=== PATIENT | female | born 1935 | race Caucasian/White ===

== ENCOUNTER 2020-05-13 16:30 | Observation (INO) | payer SELFPAY ==
[2020-05-13] VITALS (14 sets, daily range): BP systolic 154–208; BP diastolic 83–121; PULSE 72–99; RESP 10–19; TEMP 36.2–37.6; O2SAT 97–100; BMI 21.1
--- NOTE | 2020-05-13 | DI.RAD.S_ITS ---
PROCEDURE: XR SHOULDER LT MIN 2V INDICATIONS: CLOSED RELOCATION FLUORO GUIDED. TECHNIQUE: To views of the shoulder were acquired. COMPARISON: [facility], CR, XR SHOULDER LT MIN 2V, 05/13/2020, 16:50. FINDINGS: Bones: Left humeral neck fracture redemonstrated. Fracture remains impacted with slight lateral displacement of the humeral head. Soft tissues: No suspicious soft tissue calcifications. IMPRESSION: Left humeral neck fracture impacted with slight humeral head lateral displacement. Dictated by: Rakel Gray MD, PhD on 05/13/2020 at 20:38 Approved by: Rakel Gray MD, PhD on 05/13/2020 at 20:39
--- NOTE | 2020-05-13 16:46 | DI.RAD.S_ITS ---
PROCEDURE: XR SHOULDER LT MIN 2V INDICATIONS: fall TECHNIQUE: 2 views of the shoulder were acquired. COMPARISON: None. FINDINGS: Bones: There is a moderately displaced, impacted fracture seen involving the left humeral head and neck. The left humeral head also appears subluxed anteriorly and inferiorly. Soft tissues: No suspicious soft tissue calcifications. The visualized lung demonstrates an unremarkable appearance. IMPRESSION: Moderately displaced, impacted fractures of the left humeral head and neck. The left humeral head appears subluxed anteriorly and inferiorly and may be dislocated. Please consider CT or short-term follow-up for further evaluation. Dictated by: Quinton Lowe M.D. on 05/13/2020 at 16:16 Approved by: Quinton Lowe M.D. on 05/13/2020 at 16:17
--- NOTE | 2020-05-13 18:09 | ED_ITS ---
HPI - Fall General Chief Complaint: Trauma Stated Complaint: fall down stairs, about 5 steps, left shoulder inj Time Seen by Provider: 05/13/20 18:03 Source: patient Mode of arrival: Wheelchair Limitations: no limitations History of Present Illness HPI Narrative: Patient is an 84-year-old female who is quite strong independent who fell at a restaurant in [facility] hand landed on her left shoulder. She has no head injury or loss of consciousness. She drove herself to this emergency department for evaluation. She denies numbness tingling or weakness. No other injury complaint: fall Onset (ago): hour(s) Fall from: standing Fall witnessed: no Place fall occurred: other (Shoulder) Loss of consciousness: none Related Data Home Medications Medication Instructions Recorded Confirmed Verito Aspirin 05/13/20 No Known Home Medications 05/13/20 05/13/20 Allergies Allergy/AdvReac Type Severity Reaction Status Date / Time No Known Drug Allergies Allergy Verified 05/13/20 16:41 Review of Systems Review of Systems ROS Unobtainable: All systems reviewed & are unremarkable except as noted in HPI and below Constitutional Constitutional: Denies chills, Denies fever(s), Denies lethargy and Denies weakness Cardiovascular Cardiovascular: Denies chest pain, Denies syncope, Denies irregular heart rhythm, Denies lightheadedness, Denies palpitations, Denies dyspnea, Denies dyspnea on exertion and Denies orthopnea Respiratory Respiratory: Denies cough, Denies dyspnea, Denies dyspnea on exertion and Denies wheezing Musculoskeletal Musculoskeletal: Reports system reviewed and no additional complaints, except as documented Integumentary/Breasts Skin/Breast: Denies pruritus, Denies erythema, Denies rash and Denies wounds Neurologic Neurologic: Denies syncope and Denies weakness Endocrine Endocrine: Denies palpitations Allergic/Immunologic Allergic/Immunologic: Denies wheezing Patient History Medical History Patient denies medical problems Social History Smoking Status: Unknown if ever smoked Smoking Status: Unknown if ever smoked alcohol intake frequency: holidays/special occasions only Substance Use Type: does not use Exam Initial Vital Signs Initial Vital Signs: Vital Signs Temperature 97.7 F 05/13/20 16:41 Pulse Rate 87 05/13/20 16:41 Respiratory Rate 16 05/13/20 16:41 Blood Pressure 181/85 H 05/13/20 16:41 Pulse Oximetry 98 05/13/20 16:41 GENERAL: Alert pleasant well-appearing 84-year-old female HEENT: Head atraumatic,EOMI, pupils reactive, face symmetric, moist mucous membranes CARDIOVASCULAR: Regular rate and rhythm without murmurs, rubs or gallops. RESPIRATORY: Breath sounds equal bilaterally, no wheezes rales or rhonchi. ABDOMEN: Soft, nontender. Normoactive bowel sounds all 4 quadrants. No guarding or rebound. EXTREMITIES: Normal range of motion, no clubbing or edema. Neurovascularly inta ct Left upper extremity deformity to left shoulder condition of resulted in patches distal radial pulse intact able to move fingers NEUROLOGICAL: Alert and oriented x4.Normal gait and speech. SKIN: Warm, dry, no laceration, no petechiae, no rashes or lesions. Course Orders Ordered: Acetaminophen (Acetaminophen 325 Mg Tablet) 975 mg PO TID [facility] Last Admin: 05/13/20 21:53 Dose: 975 mg Documented by: PENNIE Hydrocodone Bitart/Acetaminophen (Hydrocodone/Acet 5/325 Tablet) 1 tab PO Q4HR PRN PRN Reason: Pain, Mild (1-3) Last Admin: 05/13/20 23:40 Dose: 1 tab Documented by: LIOR Aspirin (Aspirin Ec 81 Mg Tablet) 81 mg PO BID [facility] Last Admin: 05/13/20 21:53 Dose: 81 mg Documented by: PENNIE Hydralazine HCl (Hydralazine 20 Mg/Ml Vial) 10 mg IV Q4H PRN PRN Reason: Hypertension Lactated Ringer's (Lactated Ringers) 1,000 mls @ 125 mls/hr IV CONT [facility] Last Admin: 05/13/20 21:53 Dose: 125 mls/hr Documented by: PENNIE Labetalol HCl (Labetalol 20 Mg/4 Ml Syringe) 20 mg IV Q2HR PRN PRN Reason: Blood Pressure - High Naloxone HCl (Naloxone 0.4 Mg/Ml Vial) 0.2 mg IV Q2MIN PRN PRN Reason: Opiate Reversal Ondansetron HCl (Ondansetron 4 Mg Odt) 4 mg PO Q4HR PRN PRN Reason: Nausea And Vomiting Ondansetron HCl (Ondansetron 4 Mg/2 Ml Inj) 4 mg IV Q4HR PRN PRN Reason: Nausea And Vomiting Polyethylene Glycol (Polyethylene Glycol 3350 17 Gm Powd.Pack) 17 gm PO DAILY [facility] Discontinued Medications Hydrocodone Bitart/Acetaminophen (Hydrocodone/Acet 5/325 Prepack) 1 bottle MISC SEEINSTR ONE Stop: 05/13/20 18:04 Last Admin: 05/13/20 18:13 Dose: 1 bottle Documented by: KBROTEM Hydrocodone Bitart/Acetaminophen (Hydrocodone/Acet 5/325 Tablet) 1 tab PO PACUNOW PRN PRN Reason: Mild or moderate pain Fentanyl (Fentanyl 100 Mcg/2 Ml Inj) 0 mcg IV Q5M PRN PRN Reason: Pain, Moderate (4-6) Hydromorphone HCl (Hydromorphone 2 Mg Inj) 0 mg IV Q5M PRN PRN Reason: Pain, Severe (7-10) Lactated Ringer's (Lactated Ringers) 1,000 mls @ 42 mls/hr IV CONT [facility] Last Infusion: 05/13/20 20:50 Dose: 0 mls/hr Documented by: Admin: 05/13/20 19:40 Dose: 42 mls/hr Documented by: YANETH Ondansetron HCl (Ondansetron 4 Mg/2 Ml Inj) 4 mg IV NOW PRN PRN Reason: Nausea And Vomiting Vital Signs Vital signs: Vital Signs - 8 hr 05/13/20 16:41 Temperature 97.7 F Pulse Rate 87 Respiratory Rate 16 Blood Pressure 181/85 H Pulse Oximetry 98 MDM - Fall Imaging Data Extremity x-ray #1: Radiologist's Impression: PROCEDURE: XR SHOULDER LT MIN 2V INDICATIONS: fall TECHNIQUE: 2 views of the shoulder were acquired. COMPARISON: None. FINDINGS: Bones: There is a moderately displaced, impacted fracture seen involving the left humeral head and neck. The left humeral head also appears subluxed anteriorly and inferiorly. Soft tissues: No suspicious soft tissue calcifications. The visualized lung demonstrates an unremarkable appearance. IMPRESSION: Moderately displaced, impacted fractures of the left humeral head and neck. The left humeral head appears subluxed anteriorly and inferiorly and may be dislocated. Please consider CT or short-term follow-up for further evaluation. Dictated by: Quinton Lowe M.D. on 05/13/2020 at 16:16 MDM Narrative Medical decision making narrative: Due to fracture dislocation of the humerus. Dr. Leigh orthopedics was called. She agrees to take patient to the OR Discharge Plan Departure Patient Disposition: Admitted as Observation Clinical Impression: Fracture, humerus Qualifiers: Encounter type: initial encounter Humerus Location: proximal Fracture type: closed Fracture alignment: displaced Laterality: left Admit Date/Time: 05/13/20 18:57 Admit Provider: Deyanira Leigh
[2020-05-13] MEDS: HYDROCODONE/ACET 5/325 PREPACK 1 BOTTLE MISC (18:13)
--- NOTE | 2020-05-13 19:20 | PM.HP.1 ---
History of Present Illness History of Present Illness Date Patient Seen: 05/13/20 Time Patient Seen: 19:21 Chief complaint: fall down stairs, about 5 steps, left shoulder inj Narrative: This is a 84-year-old female who was up in [place] at the [employer] at her [employer] a restaurant when she went outside to [facility] in outdoor seating and accidentally fell and landed on her left arm. She noted the acute onset of severe left arm pain. She is having difficulty using her left arm and she actually did drive herself to [facility]. She lives at [facility]. She notes that the left arm was normal prior to the fall as best she could tell. Patient History Medical History Patient denies medical problems Family & Social History Safety & Behavioral: Feels Safe in Current Yes Environment Been Physically Hurt or No Threatened By a Person Tobacco & Substance use: Smoking Status Unknown if ever smoked alcohol intake frequency holiday/special occasion Substance Use Type does not use Meds Home Medications and Allergies Allergies Allergy/AdvReac Type Severity Reaction Status Date / Time No Known Drug Allergies Allergy Verified 05/13/20 16:41 Review of Systems Review of Systems Narrative: She notes she is healthy overall she only takes vitamins never had a surgery or other procedures. She has had several trial bursa. She lives at [facility] and she says that she is the youngest person there. Exam Vital Signs (past 8 hours): - 05/13/20 16:41 Temperature 97.7 F Pulse Rate 87 Respiratory Rate 16 Blood Pressure 181/85 H Pulse Oximetry 98 Oxygen Delivery Method Room Air Narrative Exam Narrative: HEENT is benign, lungs are clear, cor regular rate and rhythm, abdomen soft and benign, neck is supple, she has obvious deformity of her left upper extremity. She has pain with even very gentle attempted range of motion of her left shoulder. She can fire finger flexors and extensors in her hand she has sensation on the dorsum of her hand and on the palmar aspect of her hand as well as over the lateral deltoid, his pain with attempted pronation and supination of her elbow, she has mild pain with gentle flexion extension of the elbow she has severe restricted range of motion of the shoulder and her left arm shows anterior fullness. Objective Labs Labs: Left x-rays show a fracture dislocation of the left shoulder with an anterior dislocation. Assessment & Plan Assessment & Plan narrative: Impression is fracture dislocation left shoulder. Plan is for urgent closed reduction. I did caution her that there is a chance that they will be displacement of the fracture which would require secondary open reduction internal fixation. I also explained to her that in her age range humeral dislocations are associated with rotator cuff tears. She is in acute distress and having severe pain into her left arm. I have recommended fairly urgent reduction. She may benefit from supplemental workup with an MRI scan of her shoulder tomorrow to look for rotator cuff tearing depending upon the results of the reduction and her clinical exam.
[2020-05-13] MEDS: LACTATED RINGERS 1,000 ML 42 ML IV (19:40)
--- NOTE | 2020-05-13 19:48 | SUR.HOLD ---
Emergent, Anesthesia talking to pt shortly after arrival. IV fluids hung, SCDs on. Voided on bedpan
[2020-05-13 19:53] LABS: COVID19 -Nasal RAPID Negative (Negative)
--- NOTE | 2020-05-13 20:07 | SUR.OPER ---
Supine on padded OR bed, head on pillow, arms secured on padded arm boards at <90 degrees abduction, legs uncrossed, safety belt at thigh, tape over blanket over lower legs.
--- NOTE | 2020-05-13 20:13 | PM.OP.1 ---
Operative Date/Time/Diagnoses Date of procedure: 05/13/20 Time of procedure: 20:13 Pre-op diagnosis: Left proximal humerus fracture dislocation Post-op diagnosis: same Procedure & Clinicians Procedure: close reduction left proximal humerus fracture dislocation Same procedure as scheduled: Yes Indications: this is 84-year-old female who fell and sustained a left proximal humerus fracture dislocation. She is brought to the operating room for closed reduction. Surgeon: Deyanira Leigh Click Yes if Unassisted: Yes Anesthesia Type: General Operative Notes Findings: adequate reduction of the glenohumeral joint, acceptable reduction of the proximal humerus fracture Closure Type: not applicable Specimen(s): none sent Blood products transfused: none Procedure in detail: patient is brought to the operating room. She was carefully transferred to the OR table. A time-out was performed. She was given a general anesthesia including paralysis PICC for optimal relaxation. Her left shoulder was then very gently and carefully meticulously reduced. X-rays including an AP and an axillary showed reduction of the glenohumeral joint. There was acceptable reduction of the proximal humerus fracture. She was carefully placed in her sling. She was transferred recovery room in satisfactory condition. Complications none. Complications: none Post-operative Condition: stable Disposition: Acute Care Plan for aftercare: sling. Okay to do wrist hand and elbow gentle range of motion exercises. She had severe pain preoperatively and is admitted to an observation status likely will need to stay overnight prior to discharge to home. Return to clinic it 1 week for three view shoulder x-rays
--- NOTE | 2020-05-13 20:25 | SUR.PHASEI ---
Hypertensive on admit to Phase I; medicated by Dr. Tran. Arousing, coughing with eyes closed 1826 Denies pain, states that her left arm feels numb. Dr. Leigh notified and that CMS good with strong pulse. No orders.
--- NOTE | 2020-05-13 20:42 | SUR.PHASEI ---
Dr. Tran medicating for elevated blood pressure. Pt awake, drinking water. Continues to cough - throat irritated. She is a poor historian as was noted pre-op. Pleasant with appropriate responses.
--- NOTE | 2020-05-13 20:43 | SUR.HOLD ---
1930 late entry, noted small (dime sized) red abrasion to left knee. Left arm in an immobilizer from the ED. Poor historian, doesn't recall any medical conditions, did not seem confident but didn't think that she had any allergies. States that she only takes supplements and an occasional aspirin to help her sleep but was unsure of strength.
--- NOTE | 2020-05-13 21:09 | SUR.PHASEI ---
2054 to room 203. Bed down and locked, call light within reach. Patient tolerated fluids well. Only complaint of pain when after going into the elevator (over the bumps). See flacc. Clothing bag to room with her. Pt awake, pleasant and cooperative.
[2020-05-13] MEDS: ASPIRIN EC 81 MG TABLET PO (21:53)
[2020-05-13] MEDS: ACETAMINOPHEN 325 MG TABLET 975 MG PO (21:53)
[2020-05-13] MEDS: LACTATED RINGERS 1,000 ML 125 ML IV (21:53)
[2020-05-13] MEDS: HYDROCODONE/ACET 5/325 TABLET 1 TAB PO (23:40)
[2020-05-14] VITALS (9 sets, daily range): BP systolic 137–187; BP diastolic 72–95; PULSE 67–88; RESP 17–20; TEMP 36.1–36.8; O2SAT 96–100
--- NOTE | 2020-05-14 01:31 | PC.NURSE ---
patient is alert and oriented but forgetful. Breath sounds CTA with RA sat of 100%. HRR. BP elevated at 179/82 but outside parameters for Labetolol/Hydralazine. Denies nausea. BT present but patient denies passing flatus since return from surgery. Denies dysuria, frequency or urgency with urination. Able to move self in bed. Assisted to BSC with 1-2 assist. Complains of pain in left arm/shoulder; arm is in sling and has swelling of deltoid area. Medicated with Vicodin and ice pack applied to arm. Has good color and sensation in left UE but decreased mobility due to pain. Noted abrasion on left knee. Wearing bilateral calf SCD's. Fall risk score is moderate and bed alarm is activated.
[2020-05-14 06:35] LABS: Hematocrit 36.3 % (36-46); Hemoglobin 11.9 g/dL (12.0-16.0); Mean Corpuscular HGB Conc 32.8 % (30-36); Mean Corpuscular Volume 91.6 fL (80-100); Platelet Count 170 X10^3/uL (150-400); Red Blood Cell Count 3.97 X10^6/uL (4.0-5.2); Red Cell Distribution Width 13.8 % (11.6-14.8); White Blood Cell Count 11.8 X10^3/uL (4.5-11.0)
[2020-05-14] MEDS: SODIUM CHLORIDE 0.9% FLUSH 10 ML IV ×2 (08:28→20:48)
[2020-05-14] MEDS: polyethylene glycoL 3350 17 GM POWD.PACK PO (08:28)
[2020-05-14] MEDS: ONDANSETRON 4 MG ODT PO (08:37)
[2020-05-14] MEDS: HYDRALAZINE 20 MG/ML VIAL 5 MG IV (09:32)
--- NOTE | 2020-05-14 10:05 | PT.IIE ---
Surgery Performed Operation Date: 05/13/20 19:15 Actual Procedures p Closed Reduction Dislocated shoulder - Deyanira Leigh MD Medical History (Last Reviewed 05/13/20 @ 19:22 by Deyanira Leigh MD) Patient denies medical problems Physical Therapy Inpatient Evaluation/Re-Eval M1 PT/OT-IP Prior Functional Status Start: 05/14/20 11:26 Freq: NEEDED Status: Active Protocol: Document 05/14/20 10:05 AB (Rec: 05/14/20 11:41 AB [id number]) Medical Review Prior Functional Status Medical History Reviewed Yes Communication able to make needs known but requires time to answer to questions and seems confused Mobility and Gait pt stated that she is independent with all mobilities and ambulation without AD Social History Living Arrangements Fpc Facility Number of Stairs To Enter/Railing? pt lives at [facility] Home Environment Standard Height Toilet,Walk in Shower Home Equipment Grab Bars In Shower M2 PT-IP Current Condition Start: 05/14/20 11:26 Freq: NEEDED Status: Active Protocol: Document 05/14/20 10:05 AB (Rec: 05/14/20 11:41 AB [id number]) Physical Therapy Current Condition Current Condition Evaluation Date 05/14/20 Treatment Diagnosis L humeral fx s/o closed reduction; difficulty in walking Onset Date 05/13/20 Precautions Shoulder Precautions Sling Weight Bearing Status Weight Bearing Status Non-Weight Bearing Allowed Weight Bearing Amount (enter % LUE NWB or #) (%) M3 PT-IP Subjective Start: 05/14/20 11:26 Freq: NEEDED Status: Active Protocol: Document 05/14/20 10:05 AB (Rec: 05/14/20 11:41 AB [email or web address]) Subjective Physical Therapy Visit Type Type Initial Evaluation Visit Start Time 10:05 Visit Stop Time 10:35 Total Visit Minutes 30 Number of PUSH [employer]CTOR [employer]SEMBLER Visits 0 Therapy Pain Assessment Pain When Pain Assessed During Mobility Pain Present Pain Present Pain Reported Location Left Shoulder Scale Used pain scale not stated Pain Management Techniques Distraction,Modification of Treatment,Re-positioning M4 PT-IP Mobility and Gait Start: 05/14/20 11:26 Freq: NEEDED Status: Active Protocol: Document 05/14/20 10:05 AB (Rec: 05/14/20 11:41 AB [email or web address]) PT-Bed Mobility Assessment Supine to Sit Supine to Sit Maximum Assistance Scooting Scooting to Edge of Bed Dependent PT-Transfer Assessment Sit to and From Stand Sit to and from Stand Maximum Assistance,1 Person Assistance,Use of Upper Extremities Equipment Transfer Assistive Device None,Gait Belt Orthotic/Prosthetic Devices or Brace: Yes Transfers Transfer Destination Chair Transfer Technique Stand Step Pivot Transfer Ability Level of Assist Moderate Assistance,Maximum Assistance,1 Person Assistance ,Use of Upper Extremities Comments Mobility Comments educated pt on shoulder precautions. completed supine to sit max A and max cues. c /o increase L shoulder pain but pt refuse to take pain meds. pt requiring min to mod A for sitting balance on EOB. pt is dependent with scooting to EOB but difficulty with following directions. tends to have BLE off floor and extended forward during sitting affecting balance. instructed to bend knees to put feet on the floor but PT has to manually position BLE as pt is unable to follow. pt educated on sling management and assited with adjusting sling. also completed elbow/ wrist/hand exercises. completed sit to stand max A and cues and intructed to sit on chair and completed max A without AD with uncontrolled descent. pt is impulsive. educated pt on safety. initially refused ambulation but agreed. completed sit to stand max A and ambulated in room [facility] HOLD mod A and cues without AD. presents with shuffling gait with increase posterior trunk lean requiring max A for balance. pt agreed to sit on chair. positioned on chair. call light and table placed within reach. informed nurse regarding pt's mobility level of assistance. Gait Assessment Gait Gait Assistance Required: Moderate Assistance,Maximum Assistance,1 Person Assist Distance (Feet) 20 Able to Maintain Weight Bearing Status Yes During Gait Assistive Devices Assistive Device None,Gait Belt Orthotic/Prosthetic Devices or Brace: Yes Gait Deviations General Gait Pattern Antalgic,Ataxic,Decreased Stride Length,Decreased Feet Clearance Factors Limiting Gait Function Factors Limiting Gait Function Decreased Activity Tolerance, Decreased Strength,Difficulty Following Directions,Limited Range of Motion,Pain,Poor Balance,Poor Safety Awareness PT-Balance Assessment Sitting Balance and Reactions Static Sitting Balance Ability Fair Dynamic Sitting Balance Ability Poor Standing Balance and Reactions Static Standing Balance Ability Poor Dynamic Standing Balance Ability Poor M5 PT-IP Objective Assessments Start: 05/14/20 11:26 Freq: NEEDED Status: Active Protocol: Document 05/14/20 10:05 AB (Rec: 04/08/21 11:41 AB [id number]) Orientation Orientation/Cognition Level of Alertness Confusional State Orientation Name,Year,Place Safety Awareness Decreased Safety Awareness Memory Description Short Term Impaired Gross Range of Motion Lower Extremity ROM Assessment Within Functional Limits Strength Lower Extremity Strength Hip 4-/5 Knee 4-/5 M6 PT-IP Treatment Start: 05/14/20 11:26 Freq: NEEDED Status: Active Protocol: Document 05/14/20 10:05 AB (Rec: 05/14/20 11:41 AB [id number]) Physical Therapy Treatment Exercises Exercises Elbow Flexion/Extension,Wrist ROM,Hand ROM Education Education Provided Precautions,Weight Bearing Status,Safety Brace Education Donning,Kevil,Patient M7 PT-IP Assessment and Plan Start: 05/14/20 11:26 Freq: NEEDED Status: Active Protocol: Document 05/14/20 10:05 AB (Rec: 05/14/20 11:41 AB [id number]) PT Summary Assessment and Plan Potential Rehabilitation Potential Fair Status of Condition at Evaluation Evolving Summary Impairments Pain,ROM,Strength,Balance, Coordination,Sensation,Tone, Cognition,Bed Mobility, Transfers,Gait,Activity Tolerance Assessment Summary pt requiring mod to max A with mobility and with confusion. pt does not have any assistance available at home and needs to be more independent than current level . pt will need SNF rehab at this time. Goals Bed Mobility Goal Independent Transfer Goal Independent,Cane Gait Goal Independent,Cane Gait Distance 100 Other Goals improve ambulation without AD 150 ft SBA Days to Meet Goals 10 Frequency of Treatment Frequency Of Treatment Twice a Day Treatment Plan Physical Therapy Treatment Plan Bed Mobility Training,Transfer Training,Gait Training, Therapeutic Exercise,Balance Retraining,Post Op Education, Discharge Planning,Hot or Cold Pack,Neuromuscular Re-ed, Coordination Retraining,Manual Therapy Other Recommendations and Next Treatment assess ambulation if Focus appropriate with SPC use Precautions Shoulder Precautions Sling Recommendations To Nursing Amount of Assist Needed 1 Person Assist Discharge Recommendations PT Discharge Recommendations SNF Rehab Transportation Needs at Discharge Wheelchair/Cabulance
--- NOTE | 2020-05-14 12:12 | PM.DS.1 ---
History of Present Illness History of Present Illness Date Patient Seen: 05/14/20 Time Patient Seen: 12:13 Chief complaint: fall down stairs, about 5 steps, left shoulder inj Narrative: Please refer to previously documented HPI and chart. Discharge Providers Provider Date of admission: 05/13/20 18:57 Discharge Date: 05/14/20 Consults: 05/13/20 20:19 Consult to Discharge Planning Routine Comment: Consult to Physical Therapy Evaluate & Treat Comment: ambulate as tolerated, use left sling, ROM hand Physician Instructions: Evaluate and Treat Consult to Respiratory Therapy Evaluate & Treat Comment: Physician Instructions: Evaluate and treat 05/14/20 08:59 Consult to Occupational Therapy Evaluate & Treat Comment: Physician Instructions: Evaluate and treat Discharge provider: Hieu Murillo PA-C Summary Hospital Course Discharge Diagnosis: Left proximal humerus fracture dislocation Status post close reduction left proximal humerus fracture dislocation Hospital Course: This is an 84-year-old female with the above-listed diagnoses was consented for the procedure above as indicated and presented to the OR undergoing said procedure without difficulty or complication then admitted to the hospital for rehabilitation having convalesced appropriately was stable for discharge safely with home health or detention facility as needed with patient or caregivers on disposition verbalizing understanding postoperative care instructions as well as agreed to plan for follow-up evaluation and care as needed. Status at Discharge Cognitive/behavioral status at discharge: confused Functional status at discharge: uses cane/walker (Standby assist likely needed.) Overall status at discharge: patient is not back to baseline Time Spent with Patient Time spent: Less than 30 minutes Exam Vital Signs (past 8 hours): - 05/14/20 05:30 05/14/20 07:15 05/14/20 09:32 Temperature 97.9 F 97.4 F L Pulse Rate 80 69 Respiratory Rate 18 20 Blood Pressure 159/86 H 183/95 H Pulse Oximetry 96 99 05/14/20 09:57 Temperature Pulse Rate Respiratory Rate Blood Pressure 187/85 H Pulse Oximetry Oxygen Delivery Method Room Air Oxygen Flow Rate 0 Narrative Exam Narrative: This is an 84-year-old female who was observed lying in bed comfortably in no apparent distress. She is alert and oriented x3 but seems confused at baseline. Her left upper extremity is secured with a sling and there is minimal associated ecchymosis and/or swelling. She can fire finger flexors and extensors in her hand she has sensation on the dorsum of her hand and on the palmar aspect of her hand as well as over the lateral deltoid, his pain with attempted pronation and supination of her elbow, she has mild pain with gentle flexion extension of the elbow. Her right upper extremity is within normal limits. Her bilateral lower extremities are negative for signs or symptoms of DVT. Objective Labs Result Diagrams: 05/14/20 06:28 Labs: Laboratory Results - last 24 hr 05/13/20 05/14/20 19:05 06:28 WBC 11.8 H RBC 3.97 L Hgb 11.9 L Hct 36.3 MCV 91.6 MCH 30.0 MCHC 32.8 RDW 13.8 Plt Count 170 SARS-CoV-2 (PCR) Negative [facility] Medical History Patient denies medical problems Social History Smoking Status: Unknown if ever smoked Discharge Assessment & Plan Assessment and Plan Assessment: Left proximal humerus fracture dislocation Status post close reduction left proximal humerus fracture dislocation Plan of Treatment: Discharge home with home health services today or detention facility as needed to confirm safe disposition as per PT/OT and social work. Keep elbow at side at all times. Recommend baby aspirin daily and regular mobilization for DVT prophylaxis. Wear sling at all times except for bathing. Should follow up with PCP in 1 week. Should follow up in [facility] in 1 week for x-ray. Discharge Plan Discharge Plan Patient Disposition: Home Health Service Transfer to: Home Health, Other Provider Discharge Comment: If the patient is unable to transfer safely home with home health services the discharge orders should be canceled and arrangements should be made for detention facility. Discharge orders & Medications Prescriptions: New acetaminophen 325 mg Tablet 975 mg PO BID Qty: 60 RF: 0 hydrocodone-acetaminophen 5-325 mg Tablet 1 tab PO Q4HR PRN (Reason: Breakthrough Pain, Severe) Qty: 60 RF: 0 Continued Verito Aspirin RF: 0 No Action No Known Home Medications RF: 0 Follow up/Referrals: Deyanira Leigh MD [Physician] - (Follow-up in clinic 1 week for re-evaluation and x-rays.) Diet/Activity/Treatments Diet: Diet as Tolerated Activity: Keep elbow at side at all times. Should be in sling at all times to secure arm except for bathing. Recommend regular exercises as recommended by physical therapy for elbow and wrist. Cold/Heat Therapy: Ice regularly 20 minutes/hour as needed and tolerated. Skin/Wound/Dressing Care Report to your healthcare provider any signs of infection, such as:: chills, fever, night sweats, increased pain, unusual drainage and unusual redness Visit Report/Discharge Packet Instructions: DI for Prescription Opioid Use Stand Alone Forms: Surgery Discharge Discharge Data Attending Provider: Deyanira Leigh
--- NOTE | 2020-05-14 12:38 | PC.NURSE ---
Pt refused medication this morning (Tylenol, Ibuprofen, Aspirin) and stated she knows what her body needs and she doesn't need that. Pt states she takes a Verito Aspirin every day but declined taking the scheduled Aspirin. Pt this morning stated she could not walk or use her legs but is moving her legs around in bed and when examined by Ortho PA was able to move her legs around and eventually got up to the chair with P.T. for a short while and then stated she wanted to go back to bed. When questions are asked Pt is very slow/delayed in answering and does not seem to understand clearly what is being said. Pt denies pain. Pt being evaluated by CARPENTER'S ASSISTANT to determine home safety.
--- NOTE | 2020-05-14 13:36 | CM.DPNOTE ---
Addendum entered by Isadora Collier 05/14/20 13:43: I added daughter, Frances Campuzano and her phone number to Contacts. Original Note: Per Kate, called [facility] and spoke with Talent Consultant, Rebeka, asking for information on a publicity person. Rebeka said pt. is a resident at [facility], and to contact her daughter, Frances Campuzano at [phone]. Isadora Collier CM Asst.
--- NOTE | 2020-05-14 13:50 | PT.IPTN ---
Surgery Performed Operation Date: 05/13/20 19:15 Actual Procedures p Closed Reduction Dislocated shoulder - Deyanira Sam Leigh MD Physical Therapy Treatment Note M2 PT-IP Current Condition Start: 05/14/20 11:26 Freq: NEEDED Status: Active Protocol: Document 05/14/20 10:05 AB (Rec: 05/14/20 11:41 AB [email or web address]) Physical Therapy Current Condition Current Condition Evaluation Date 05/14/20 Treatment Diagnosis L humeral fx s/o closed reduction; difficulty in walking Onset Date 05/13/20 Precautions Shoulder Precautions Sling Weight Bearing Status Weight Bearing Status Non-Weight Bearing Allowed Weight Bearing Amount (enter % LUE NWB or #) (%) M3 PT-IP Subjective Start: 05/14/20 11:26 Freq: NEEDED Status: Active Protocol: Document 05/14/20 13:50 AB (Rec: 05/14/20 15:18 AB [email or web address]) Subjective Physical Therapy Visit Type Type Treatment Note Visit Start Time 13:50 Visit Stop Time 14:07 Total Visit Minutes 17 Number of SEMICONDUCTOR PACKAGES LEAK TESTER Visits 0 Physical Therapy Visit Comments Patient Comments Pt is agreeable to do ambulation Therapy Pain Assessment Pain When Pain Assessed During Mobility Pain Present Pain Present Pain Reported Location Left Shoulder Scale Used pain scale not stated Pain Management Techniques Distraction,Modification of Treatment,Re-positioning M4 PT-IP Mobility and Gait Start: 05/14/20 11:26 Freq: NEEDED Status: Active Protocol: Document 05/14/20 13:50 AB (Rec: 05/14/20 15:18 AB [email or web address]) PT-Bed Mobility Assessment Supine to Sit Supine to Sit Maximum Assistance Scooting Scooting to Edge of Bed Maximum Assistance Scooting Up and Down in Bed Maximum Assistance PT-Transfer Assessment Sit to and From Stand Sit to and from Stand Moderate Assistance,Maximum Assistance,1 Person Assistance ,Use of Upper Extremities Equipment Transfer Assistive Device None,Gait Belt Orthotic/Prosthetic Devices or Brace: Yes Transfers Transfer Destination Toilet Transfer Technique ambulated without AD Transfer Ability Level of Assist Contact Guard Assistance,1 Person Assistance,Use of Upper Extremities Comments Mobility Comments completed supine to sit max A and max cues. c/o L shoulder pain and tends to reach and pull on PT for assistance . pt required max A to total A for scooting to EOB. pt continues to have confusion and requires max cues for all tasks. completed sit to stand mod to max A and requiring mod A for initial standing balance. ambulated in room without AD CGA to min A initially but after a few feet was able to ambulate with CGA . requested to use the toilet and ambulated to the toilet CGA without AD. completed toileting SBA and ambulated towards the sink CGA. pt ambulated more in room ~ 30 ft without AD CGA. requested to go back in bed and completed sit to supine max A and max cues. positioned in bed max A . call light and table placed within reach. Gait Assessment Gait Gait Assistance Required: Contact Guard Assist,Minimum Assistance Distance (Feet) 30 Able to Maintain Weight Bearing Status Yes During Gait Assistive Devices Assistive Device None,Gait Belt Orthotic/Prosthetic Devices or Brace: Yes Gait Deviations General Gait Pattern Antalgic,Decreased Stride Length,Decreased Feet Clearance,Step-to Gait Factors Limiting Gait Function Factors Limiting Gait Function Decreased Activity Tolerance, Decreased Strength,Difficulty Following Directions,Limited Range of Motion,Pain,Poor Balance,Poor Safety Awareness Comments Gait Comments pls refer to mobility section for details M5 PT-IP Objective Assessments Start: 05/14/20 11:26 Freq: NEEDED Status: Active Protocol: Document 05/14/20 10:05 AB (Rec: 05/14/20 11:41 AB [email or web address]) Orientation Orientation/Cognition Level of Alertness Confusional State Orientation Name,Year,Place Safety Awareness Decreased Safety Awareness Memory Description Short Term Impaired Gross Range of Motion Lower Extremity ROM Assessment Within Functional Limits Strength Lower Extremity Strength Hip 4-/5 Knee 4-/5 M6 PT-IP Treatment Start: 05/14/20 11:26 Freq: NEEDED Status: Active Protocol: Document 05/14/20 13:50 AB (Rec: 05/14/20 15:18 AB [email or web address]) Physical Therapy Treatment Education Education Provided Precautions,Weight Bearing Status,Post-Op Packet,Safety M7 PT-IP Assessment and Plan Start: 05/14/20 11:26 Freq: NEEDED Status: Active Protocol: Document 05/14/20 13:50 AB (Rec: 05/14/20 15:18 AB [email or web address]) PT Summary Assessment and Plan Potential Rehabilitation Potential Fair Summary Impairments Pain,ROM,Strength,Balance, Coordination,Sensation,Tone, Cognition,Bed Mobility, Transfers,Gait,Activity Tolerance Progress Towards Goals Slow Progress - Other Assessment Summary pt continues to require max A with bed mobility and with sit to stand but improve with ambulation to CGA to min A but still requiring max A with all tasks. pt with cognitive issues and has decrease safety awareness. pt requires increase time to respond to instructions. pt will need 24 /7 assist available at this time and will need SNF rehab. Goals Bed Mobility Goal Independent Transfer Goal Independent,Cane Gait Goal Independent,Cane Gait Distance 100 Other Goals improve ambulation without AD 150 ft SBA Days to Meet Goals 10 Frequency of Treatment Frequency Of Treatment Twice a Day Treatment Plan Physical Therapy Treatment Plan Bed Mobility Training,Transfer Training,Gait Training, Therapeutic Exercise,Balance Retraining,Post Op Education, Discharge Planning,Hot or Cold Pack,Neuromuscular Re-ed, Coordination Retraining,Manual Therapy Other Recommendations and Next Treatment assess ambulation if Focus appropriate with SPC use Precautions Shoulder Precautions Sling Other Precautions NWB LUE Recommendations To Nursing Amount of Assist Needed 1 Person Assist Discharge Recommendations PT Discharge Recommendations SNF Rehab Transportation Needs at Discharge Wheelchair/Cabulance
--- NOTE | 2020-05-14 14:08 | PC.NURSE ---
Cancelled discharge per Care Management and ANY [facility]illo orders. Pt is not safe to go home alone at the point. Very little appetite and somewhat unwilling to eat or ambulate with P.T. Pt refused bkfst this morning and stated she felt a little bit nauseated. Gave Pt Zofran and checked back in a while later and Pt stated her nausea had resolved. Pt refused to take her meds this morning-tried multiple times (meds where Ibuprofen, Aspirin and Tylenol.) Pt denies pain unless actively moving her arm. Arm is in a sling as ordered. Called Pt's Daughter who is her POA and lives about an hour and a half away and her name is Frances Campuzano. She was not aware that her mother had been admitted. Explained to daughter the circumstances of her admission and our concerns for discharging the Pt without someone to care for her. Also stated concerns about Pt driving with one arm in a sling. Pt has her car here at the hospital and the car would have to be returned to [facility] where the Pt lives. Pt was unable to give her medical hx or home med list and states she does not have a primary care physician. Daughter stated that her mother was very healthy and natural and does not take any medications. Expressed concerns to daughter about Pt's ability to move around safely home alone, dress, eat, or do any other of her ADL's. Daughter stated that [facility] provided meals to their residents twice daily and suggested that Pt would probably not need to shop or go out. Reminded Daughter that Pt was not safe to drive. Spoke with daughter about Pt seeming a bit confused at times and seemed to have a delay before answering when she was asked questions. Pt's daughter explained that she also felt that her mother was slipping a bit. Daughter states she will talk with her to make a plan about assistance at discharge and call back a little bit later tonight. Kate in CM notified and Pt's daughter may call to speak with her. Pt is currently sleeping with bed alarm on. Resps even and unlabored. Call light in reach of uninjured arm.
--- NOTE | 2020-05-14 16:13 | OT.IPNOTE ---
Attempted to see pt for OT eval and pt states too tired and wanting to do OT eval tomorrow.
--- NOTE | 2020-05-14 16:26 | CM.DPNOTE ---
DCP Note Multiple concerns voiced by RN Flori and Ortho PA this morning about safety of dispo home to [facility] ([facility]) today. Patient arrives w/a shoulder dislocation after a fall at one of her favorite restaurants in [place]. closed reduction done by Dr Leigh. Met w/patient multiple times today...initially appears and sounds A+O, pleasant, cooperative, however patient shows severe short term memory loss during this TRUCK DRIVER TEAMSTER's visits; does not know if she has medical insurance, does not know the number for her dtr Frances or best friend Soraya ([place], [place]) and tells this TRUCK DRIVER TEAMSTER she plans to drive herself home today Spoke w/dtr Frances Campuzano, [place] P# [phone]. Frances is feverishly working on this dispo on patient's behalf, she has placed calls to [facility] and multiple in home cg agencies. She has planned to have a [facility] staff member to p/u patient tomorrow AM. This TRUCK DRIVER TEAMSTER will complete HH referral. provided additional cg agency options, contact numbers to dtr. many agencies, according to dtr, have at least a 2 week wait list According to PT Gina, patient requiring Max assist to get OOB today, better functionally once moving. This TRUCK DRIVER TEAMSTER suggested to dtr that, ideally, patient have a cg available to assist tomorrow upon patient's return home...to assist w/bed mobility and for ADLs. Dtr made no mention of visiting patient to assist Plan: Home tomorrow expected, w/ HH and potentially in home cgs (?) Following closely. Likely need to continue communication w/dtr Frances tomorrow re safety of plan and senior care care planning, still need HH referral. Will continue to discuss plan also w/patient tomorrow AM JW
--- NOTE | 2020-05-14 16:49 | PC.NURSE ---
Addendum entered by Denise Turner R.N. 05/14/20 18:53: Patient's daughter called this evening to inform nursing staff and care management that staff from [facility] will be available for pick-up tomorrow after safe patient discharge. Original Note: Discharge chemistry quality control technician from Dr Leigh's office called this afternoon to schedule patient's follow-up appointment with x-rays in 1 week. Appointment scheduled for May 21 at 11:30 at the [facility]. This RN updated appointment information in discharge plan.
[2020-05-14] MEDS: ASPIRIN EC 81 MG TABLET PO (23:38)
[2020-05-15 00:20] VITALS: BP 167/82; PULSE 85; RESP 16; TEMP 36.9; O2SAT 94
--- NOTE | 2020-05-15 02:46 | PC.NURSE ---
patient is alert and oriented except did not know day of month or day of year and can be forgetful although did remember this RN from last night. Breath sounds CTA with RA sat of 98%. HRR. BP elevated at 176/78 but did not meet parameters for Hydralazine (SBP > 160 and DBP > 100) so rechecked an hour later and was 167/82. Denies nausea. BT present and abdomen is soft. Denies dysuria, frequency or urgency with urination; refused to leave measuring hat in toilet when urinating so unable to verify UOP. Is able to turn herself in bed. Is provided SBA when out of bed although patient does not call for assistance and will just get up on her own so bed alarm is activated as fall risk score is high. Refused to wear SCD's. Has limited ROM in left UE due to fx dislocation. Refusing to wear sling. Has swelling of upper arm and bruising noted. States arm is sore but unable to quantify severity numerically but declined offer of pain medication. Did request and was medicated with Aspirin which was ordered to be given earlier but she had declined at that time.
[2020-05-15 04:35] VITALS: BP 155/71; PULSE 79; RESP 17; TEMP 36.6; O2SAT 96
[2020-05-15 07:27] VITALS: BP 154/89; PULSE 80; RESP 19; TEMP 37; O2SAT 96
[2020-05-15] MEDS: polyethylene glycoL 3350 17 GM POWD.PACK PO (08:16)
[2020-05-15] MEDS: ASPIRIN EC 81 MG TABLET PO (08:16)
[2020-05-15] MEDS: ACETAMINOPHEN 325 MG TABLET 975 MG PO (08:16)
[2020-05-15] MEDS: SODIUM CHLORIDE 0.9% FLUSH 10 ML IV (08:16)
--- NOTE | 2020-05-15 09:00 | OT.IP.EVAL ---
Surgery Performed Operation Date: 05/13/20 19:15 Actual Procedures p Closed Reduction Dislocated shoulder - Deyanira Leigh MD Past Medical History (Last Reviewed 05/13/20 @ 19:22 by Deyanira Leigh MD) Patient denies medical problems Occupational Therapy Inpatient Evaluation/Re-Eval M1 PT/OT-IP Prior Functional Status Start: 05/15/20 14:55 Freq: NEEDED Status: Active Protocol: Document 05/15/20 08:37 [facility] (Rec: 05/15/20 15:11 [facility] [id number]) Medical Review Prior Functional Status Medical History Reviewed Yes Communication able to make needs known but requires time to answer to questions and seems confused Mobility and Gait pt stated that she is independent with all mobilities and ambulation without AD Activities of Daily Living and IADL's Prior pt states completely independent with all needs of ADl's, 2 meals provided at [facility]. Social History Living Arrangements Residential Facility Number of Stairs To Enter/Railing? pt lives at [address] Home Environment Standard Height Toilet,Walk in Shower Home Equipment Grab Bars In Shower M2 OT-IP Current Condition Start: 05/15/20 14:55 Freq: Status: Active Protocol: Document 05/15/20 08:37 [facility] (Rec: 05/15/20 15:11 [facility] [id number]) Occupational Therapy Current Condition Current Condition Evaluation Date 05/15/20 Treatment Diagnosis s/p L proximal humerus fracture dislocation Diagnosis Onset Date 05/13/20 Post Operative Precautions Shoulder Precautions Sling Other Precautions NWB LUE, hand and elbow gentle ROM. Weight Bearing Status Weight Bearing Status Non-Weight Bearing Allowed Weight Bearing Amount (enter % LLUE or #) (%) M3 OT- IP Subjective and Pain Start: 05/15/20 14:55 Freq: Status: Active Protocol: Document 05/15/20 08:37 [facility] (Rec: 05/15/20 15:11 [facility] [id number]) OT- Subjective Occupational Therapy Visit Type Type Initial Evaluation Visit Start Time 08:37 Visit Stop Time 09:00 Total Visit Minutes 23 Occupational Therapy Visit Comments Patient Comments Pt wanting to use the bathroom. Patient/Caregiver Goals TO go home. OT Pain Assessment Pain When Pain Assessed At Rest Pain Present Pain Present Denied Pain M4 OT- IP ADL's Start: 05/15/20 14:55 Freq: Status: Active Protocol: Document 05/15/20 08:37 [facility] (Rec: 05/15/20 15:11 [facility] [id number]) OT [id number] Comments OT Self-Feeding Comments After set-up. OT ADL-Grooming General Evaluation Grooming Ability Standby Assistance Areas Needing Assistance Retrieving/Set-up of Grooming Items OT ADL-Oral Care General Eval Oral Care Ability Standby Assistance OT ADL-Dressing General Eval Upper Body Dressing Ability Maximum Assistance Lower Body Dressing Ability Maximum Assistance Areas Needing Assistance Pull-Over Shirt,Underpants/ Brief,Pants/Shorts,Socks,Shoes Comments OT Dressing Comments Pt needing assist to help get clothing over her feet. Issued pt mineral resources inspector to assist but will still need physical assist for all clothing needs, especially for sling management needs. OT ADL-Toileting General Evaluation Toileting Ability Minimal Assistance Comments OT Toileting Comments Assist to help pull up pants over his hips. Suggested beneficial to wear disposable briefs. OT ADL-Bathing Comments OT Bathing Comments Pt not wanting to shower. M5 OT- IP IADL's Start: 05/15/20 14:55 Freq: Status: Active Protocol: Document 05/15/20 08:37 [facility] (Rec: 05/15/20 15:11 [facility] [id number]) OT-Instrumental Activities of Daily Living Home Safety Awareness Awareness of Need for Assistance at Home Decreased Awareness Home Safety Comments Pt a bit confused and would be best to have assist for all needs at this time. M6 OT- IP Functional Cognition Start: 05/15/20 14:55 Freq: Status: Active Protocol: Document 05/15/20 08:37 [facility] (Rec: 05/15/20 15:11 [facility] [id number]) Cognitive Factors Limiting Selfcare Function Cognitive Ability Level of Alertness Alert,Confusional State Patient Orientation Name,Place,Situation Attention Span Ability Capable of Focused Attention, Capable of Sustained Attention Ability to Follow Commands Able to Follow One Step Commands Memory Description Short Term Impaired Safety Awareness Underestimates Need for Assistance Problem Solving Ability Needs Assist to Identify Solutions Cognitive Comments Cognitive Assessment Comments Pt a bit confused and needing step by step instructions for safety for dressing and sling management needs. OT- Vision and Hearing OT- Hearing Assessment OT- Hearing Assessment WFL OT- Vision Assessment Visual Acuity Glasses For Reading M7 OT- IP Mobility and Balance Start: 05/15/20 14:55 Freq: Status: Active Protocol: Document 05/15/20 08:37 [facility] (Rec: 05/15/20 15:11 [facility] [id number]) OT- Bed Mobility Assessment Rolling Type of Rolling Roll to Right Level of Assistance Standby Assistance Supine to Sit Supine to Sit Assist Standby Assistance OT-Transfer Assessment Sit to and From Stand Sit to and from Stand Standby Assistance,Contact Guard Assistance Transfers Transfer Ability Standby Assistance,Contact Guard Assistance Technique Transfer Destination Bed,Chair,Toilet Transfer Technique Stand Step Pivot Devices Transfer Assistive Devices None,Gait Belt Comments Mobility Comments Pt at times needing CGA for balance if turning too quickly , otherwise close SBA for level surfaces while in the room with no device OT- Gait Assessment Comments Gait Ability Comments SBA level surfaces and CGA for uneven terrain. OT- Balance Assessment Sitting Balance and Reactions Static Sitting Balance Ability Good Dynamic Sitting Balance Ability Fair Standing Balance and Reactions Static Standing Balance Ability Fair M8 OT- IP Objective Assessments Start: 05/15/20 14:55 Freq: Status: Active Protocol: Document 05/15/20 08:37 [facility] (Rec: 05/15/20 15:11 [facility] [id number]) OT Gross Range of Motion Upper Extremity Range of Motion Assessment Left Impaired ROM Impairments RUE grossly WFL OT Strength Upper Extremity Strength Assessment Left Impaired OT- Coordination Assessment Comments Coordination Comments 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 OT Sensation Assessment Edema Edema Comments Left hand mildly swollen. M9 OT- IP Assessment and Plan Start: 05/15/20 14:55 Freq: Status: Active Protocol: Document 05/15/20 08:37 [facility] (Rec: 05/15/20 15:11 [facility] [id number]) OT Summary Assessment and Plan Potential Rehabilitation Potential Good Analytic Complexity at Evaluation Low Summary OT Impairments Balance,Functional Cognition, Functional Mobility,Grooming, Dressing,Toileting,Bathing, Toilet Transfers,Shower Transfers,Activity Tolerance Progress Towards Goals Slow Progress due to Medical Issues,Slow Progress due to Activity Tolerance,Slow Progress due to Cognition Assessment Summary Pt s/p fall resulting and Left proximal humerus fracture dislocation and main barriers are now needing MAX A for dressing needs due to not able to use LUE to assist for needs. Pt is a bit confused and needing cues for safety awareness. Pt does realize would benefit from assist and per pt daughter coming to help her Monday and to have hired caregivers. Pt would benefit 24/7 available assist and home health as pt is a high fall risk. Goals Grooming Goal Independent Dressing Goal Independent Toileting Goal Independent Bathing Goal Independent Toilet Transfer Goal Independent Shower Transfer Goal Independent Days to Meet Goals 20 Frequency of Treatment Frequency Of Treatment Once a Day Treatment Plan OT Treatment Plan ADL Training,Functional Cognition Training,Functional Mobility,Patient/Family Education,Discharge Planning Discharge Recommendations OT Discharge Recommendations Home with 24/7 Assist Available,Home Health Transportation Needs at Discharge Private Vehicle
--- NOTE | 2020-05-15 11:03 | PC.NURSE ---
Addendum entered by Isa Olsen R.N. 05/15/20 12:02: Discharge to [facility] in stable condition via transportation arrangement facility van. Original Note: Day shift note: Patient discharge per MD order. This RN spoke with [facility] Staff regarding transportation arrangement back to facility with quill picking machine operator time at 1130 and caregiver Frances to meet at [facility] on arrival. Discharge instructions given to patient, discussed importance of F/U with Dr. Leigh on May 21 at 1130, new medication Rx, mobility precautions with sling, and s/sx of infections.
--- NOTE | 2020-05-15 11:16 | PT.IPTN ---
Surgery Performed Operation Date: 05/13/20 19:15 Actual Procedures p Closed Reduction Dislocated shoulder - Deyanira Sam Leigh MD Physical Therapy Treatment Note M2 PT-IP Current Condition Start: 05/14/20 11:26 Freq: NEEDED Status: Discharge Protocol: Document 05/14/20 10:05 [facility] (Rec: 05/14/20 11:41 [facility] [id number]) Physical Therapy Current Condition Current Condition Evaluation Date 05/14/20 Treatment Diagnosis L humeral fx s/o closed reduction; difficulty in walking Onset Date 05/13/20 Precautions Shoulder Precautions Sling Weight Bearing Status Weight Bearing Status Non-Weight Bearing Allowed Weight Bearing Amount (enter % LUE NWB or #) (%) M3 PT-IP Subjective Start: 05/14/20 11:26 Freq: NEEDED Status: Discharge Protocol: Document 05/15/20 10:55 [facility] (Rec: 05/15/20 12:50 [facility] [id number]) Subjective Physical Therapy Visit Type Type Treatment Note Visit Start Time 10:55 Visit Stop Time 11:16 Total Visit Minutes 21 Number of TRAM INSPECTOR Visits 1 Physical Therapy Visit Comments Patient Comments Pt willing to work with therapy. Therapy Pain Assessment Pain When Pain Assessed During Mobility Pain Present Pain Present Pain Reported Location Left Shoulder Scale Used pain scale not stated Pain Management Techniques Distraction,Modification of Treatment,Re-positioning M4 PT-IP Mobility and Gait Start: 05/14/20 11:26 Freq: NEEDED Status: Discharge Protocol: Document 05/15/20 10:55 [facility] (Rec: 05/15/20 12:50 [facility] [id number]) PT-Bed Mobility Assessment Supine to Sit Supine to Sit Contact Guard Assistance,1 Person Assistance Sit to Supine Sit to Supine Contact Guard Assistance,1 Person Assistance Scooting Scooting to Edge of Bed Minimal Assistance PT-Transfer Assessment Sit to and From Stand Sit to and from Stand Contact Guard Assistance,1 Person Assistance,Use of Upper Extremities Equipment Transfer Assistive Device None,Gait Belt,Straight Cane Orthotic/Prosthetic Devices or Brace: Yes Transfers Transfer Destination Bed Transfer Technique Stand Step Pivot Transfer Ability Level of Assist Contact Guard Assistance,1 Person Assistance,Use of Upper Extremities Comments Mobility Comments Pt able to get to EOB from supine CGA and cues for sequencing. Pt then required Min A and cues for scooting to EOB. Pt stood CGA and ambulate in room with SPC but was unable to get sequencing down and was unsafe. Pt then ambulated CGA in room w/o AD with LOB to right side x1 but was able to recover. Pt then requested to return to bed. Pt sat on EOB CGA and required CGA to supine and cues to align body in bed. Pt left in bed with alarm on and all needs within reach. Gait Assessment Gait Gait Assistance Required: Contact Guard Assist,1 Person Assist Distance (Feet) 45 Able to Maintain Weight Bearing Status Yes During Gait Assistive Devices Assistive Device None,Gait Belt Orthotic/Prosthetic Devices or Brace: Yes Gait Deviations General Gait Pattern Antalgic,Decreased Stride Length,Decreased Feet Clearance,Narrow Based Gait Factors Limiting Gait Function Factors Limiting Gait Function Decreased Activity Tolerance, Decreased Strength,Difficulty Following Directions,Limited Range of Motion,Pain,Poor Balance,Poor Safety Awareness Comments Gait Comments Pt unable to safely use SPC as she had difficulty getting down sequence. Pt ambulates w/ o AD with narrow base and uses small step thru gait pattern requiring CGA. M5 PT-IP Objective Assessments Start: 05/14/20 11:26 Freq: NEEDED Status: Discharge Protocol: Document 05/14/20 10:05 [facility] (Rec: 05/14/20 11:41 [facility] [id number]) Orientation Orientation/Cognition Level of Alertness Confusional State Orientation Name,Year,Place Safety Awareness Decreased Safety Awareness Memory Description Short Term Impaired Gross Range of Motion Lower Extremity ROM Assessment Within Functional Limits Strength Lower Extremity Strength Hip 4-/5 Knee 4-/5 M6 PT-IP Treatment Start: 05/14/20 11:26 Freq: NEEDED Status: Discharge Protocol: Document 05/14/20 13:50 [facility] (Rec: 05/14/20 15:18 [facility] [id number]) Physical Therapy Treatment Education Education Provided Precautions,Weight Bearing Status,Post-Op Packet,Safety M7 PT-IP Assessment and Plan Start: 05/14/20 11:26 Freq: NEEDED Status: Discharge Protocol: Document 05/15/20 10:55 [facility] (Rec: 05/15/20 12:50 [facility] [id number]) PT Summary Assessment and Plan Summary Impairments Pain,ROM,Strength,Balance, Coordination,Sensation,Tone, Cognition,Bed Mobility, Transfers,Gait,Activity Tolerance Assessment Summary Pt improving with all mobility but requires cues for sequencing for safety and requires CGA for all mobility at this time. Pt would benefit from SNF rehab to improve strength for improved balance and functional independence but if pt returns home at discharge pt will need 24/ assist available. Goals Bed Mobility Goal Independent Transfer Goal Independent,Cane Gait Goal Independent,Cane Gait Distance 100 Other Goals improve ambulation without AD 150 ft SBA Days to Meet Goals 10 Frequency of Treatment Frequency Of Treatment Twice a Day Treatment Plan Physical Therapy Treatment Plan Bed Mobility Training,Transfer Training,Gait Training, Therapeutic Exercise,Balance Retraining,Post Op Education, Discharge Planning,Hot or Cold Pack,Neuromuscular Re-ed, Coordination Retraining,Manual Therapy Precautions Shoulder Precautions Sling Other Precautions NWB LUE Recommendations To Nursing Amount of Assist Needed 1 Person Assist Discharge Recommendations PT Discharge Recommendations SNF Rehab Transportation Needs at Discharge Wheelchair/Cabulance
--- NOTE | 2020-05-15 14:23 | CM.DPNOTE ---
DC Note Coordinated the following DCP /assist from BENI Moss and dtr Frances today: DC back to [facility], transport at 1130 via [place] [employer] van, private cg Frances to meet patient at her apt at 1145 to assist for a few hours. [facility] private cg agency working w/dtr Frances to discuss additional cg support. Asked dtr Frances about primary care physician? Dtr doesn't know many details about her mother's medical care or finances ...sates she doesn't know who her mother's PCP is and doesn't know where here mother silva. This COMMERCIAL DRIVER strongly encouraged some investigation quickly as patient's memory continued to seem indicative of dementia (?) ...it is possible patient has been living very marginally for awhile and passing socially as A+O (?) Explained patient cannot receive Home Health if she does not have a Primary Care Physician. Suggested that once she is established, to ask PCP office for HH referral and dtr agreed, she further explained she was looking into memory care units on her mom's behalf. Updated Dr Leigh this AM on DCP efforts, Dr Leigh requested PCP f/u, this COMMERCIAL DRIVER did not know this morning patient does not have a PCP, dtr will need to arrange this. JW
== END 2020-05-15 11:50 | disposition home health service (06) ==
LOC: ED 18:03 → AC 18:58
PROVIDERS: Admitting Provider Orthopaedic Surgery; Emergency Provider Emergency Medicine; Referring Provider Emergency Medicine; Visit Provider Orthopaedic Surgery
PROC: (CPT 23665; principal; 2020-05-13 19:15)
DX: S42.202A Unspecified fracture of upper end of left humerus, initial encounter for closed fracture (principal); W10.9XXA Fall (on) (from) unspecified stairs and steps, initial encounter; Y92.511 Restaurant or cafe as the place of occurrence of the external cause; Z20.822 Contact with and (suspected) exposure to COVID-19
CPT/HCPCS: 23665; 36415; 73030; 76000; 85027; 87635; 96361; 96374; 96375; 97116; 97162; 97165; 97535; 99284; C9803; G0378; J0360; J3010